=== PATIENT | female | born 1980 | race African-American/Black ===

== ENCOUNTER 2017-03-28 15:13 | Emergency (ER) | payer OTHER ==
[~2017-03-28] VITALS: Ht 165.1 cm; Wt 66.4 kg
[2017-03-28 15:33] VITALS: BP 122/71; PULSE 64; RESP 16; TEMP 98.5; O2SAT 100
[2017-03-28 15:47] LABS: BILIRUBIN, URINE NEG (NEG); BLOOD, URINE LARGE (NEG); GLUCOSE,URINE NEG (NEG); KETONE, URINE NEG (NEG); NITRITE,URINE NEG (NEG); PH, URINE 6.5 (5.0-8.5); URINE LEUKOCYTE ESTERASE LARGE (NEG)
[2017-03-28 15:59] LABS: TRANSITIONAL EPI CELLS, URINE F /hpf; URINE COLOR YELLOW (YELLW/STRAW); WHITE BLOOD CELL CLUMPS MOD
[2017-03-28] MEDS ORDERED: MACR100C2 PO (17:26)
--- NOTE | 2017-03-28 17:27 | PD ---
HPI Chief Complaint: Complaint Time Seen by Provider: 17:17 Travel History International Travel<30 days: No Contact w/Intl Traveler<30days: No Traveled to known affect area: No History of Present Illness HPI This is a 36-year-old female here with urgency, frequency, and blood-tinged urine times one day. Patient has history of UTIs. She reports this is similar to prior. No fever/chills, back pain, abdominal pain, nausea or vomiting. Symptom severity is mild. No aggravating or alleviating factors. PFSH Past Medical History Tetanus Vaccination: > 5 Years Influenza Vaccination: No ?: Not LMP: 2 weeks ago Past Surgical History Section: Yes Social History Alcohol Use: Yes (occ) Tobacco Use: No Allergies-Medications (Allergen,Severity, Reaction): Coded Allergies: Sulfa (Sulfonamide Antibiotics) (Verified Allergy, Severe, TONGUE AND LIPS SWELL, 03/28/17) Reported Meds & Prescriptions Reported Meds & Active Scripts Active Macrobid (Nitrofurantoin Monoh/Nitrofur Macro) 100 Mg Cap 100 Mg PO BID 7 Days Review of Systems Except as stated in HPI: all other systems reviewed are Neg General / Constitutional: No: Fever HENT: No: Headaches Gastrointestinal: No: Abdominal Pain Genitourinary: Positive: Urgency, Frequency, Hematuria Musculoskeletal: No: Pain Skin: No Rash Physical Exam Narrative GENERAL: Alert and well-appearing 37-year-old female SKIN: Warm and dry. HEAD: Normocephalic. EYES: No injection or drainage. NECK: Supple, trachea midline. GASTROINTESTINAL: Abdomen soft, non-tender, nondistended. BACK: No CVA tenderness. Data Data Last Documented VS Vital Signs Date Time Temp Pulse Resp B/P (MAP) Pulse Ox O2 Delivery O2 Flow Rate FiO2 03/28/17 15:33 98.5 64 16 122/71 (88) 100 Orders Orders Urinalysis - C+S If Indicated (03/28/17 15:35) Urine Culture (03/28/17 15:33) Ed Discharge Order (03/28/17 17:27) Labs Laboratory Tests Test 03/28/17 15:33 Urine Collection Type CLEAN CATCH Urine Color YELLOW Urine Turbidity SLIGHT Urine pH 6.5 Urine Specific [place] 1.006 Urine Protein TRACE mg/dL Urine Glucose (UA) NEG mg/dL Urine Ketones NEG mg/dL Urine Occult Blood LARGE Urine Nitrite NEG Urine Bilirubin NEG Urine Leukocyte Esterase LARGE Urine RBC 50-99 /hpf Urine WBC 50-99 /hpf Urine WBC Clumps MOD Urine Squamous Epithelial Cells 6-8 /hpf Urine Transitional Epithelial Cells F /hpf Microscopic Urinalysis Comment CULTURE INDICATED Urine Collection Time 15:33 [facility] Medical Decision Making Medical Screen Exam Complete: Yes Emergency Medical Condition: Yes Differential Diagnosis UTI, pyelonephritis, nephrolithiasis Narrative Course This is a 37-year-old female here with urinary symptoms 1 day. No fever or chills. She is nontoxic appearing. Vital signs are stable. No CVA tenderness. UA is positive for infection. Patient be treated for UTI Diagnosis Primary Impression: UTI (urinary tract infection) Qualified Codes: N30.01 - Acute cystitis with hematuria Referrals: Primary Care Physician Additional Instructions: Antibiotics as prescribed. Push fluids. Return if he developed new or worsening symptoms Scripts Nitrofurantoin Monohydrate Macrocrystals (Macrobid) 100 Mg Cap 100 MG PO BID for Infection for 7 Days, #14 CAP 0 Refills Prov: Christy Aguillon 03/28/17 Disposition: 01 DISCHARGE HOME Condition: Stable Christy Aguillon Mar 28, 2017 17:27
== END 2017-03-28 17:35 | disposition home or self-care (01) ==
LOC: PHED 15:13 → PHEFT 17:35
DX: N30.01 Acute cystitis with hematuria (principal); B96.20 Unspecified Escherichia coli [E. coli] as the cause of diseases classified elsewhere; B96.89 Other specified bacterial agents as the cause of diseases classified elsewhere; Z87.440 Personal history of urinary (tract) infections; Z88.2 Allergy status to sulfonamides
CPT/HCPCS: 81001; 87077; 87086; 87186; 99283

== ENCOUNTER 2017-05-11 00:25 | Emergency (ER) | payer OTHER ==
[~2017-05-11] VITALS: Ht 165.1 cm; Wt 65.7 kg
[~2017-05-11 00:25] MED LIST: MACR100C2 PO
[2017-05-11 00:29] VITALS: BP 132/79; PULSE 71; RESP 18; TEMP 97.2; O2SAT 100
[2017-05-11 03:37] VITALS: BP 132/79; PULSE 71; RESP 18; TEMP 97.2; O2SAT 100
--- NOTE | 2017-05-11 03:43 | PD ---
HPI Chief Complaint: Complaint Time Seen by Provider: 03:41 Travel History International Travel<30 days: No Contact w/Intl Traveler<30days: No Traveled to known affect area: No History of Present Illness HPI 37-year-old female presents to the emergency department by private transportation for UTI. Patient had symptoms 1 day. Patient notes hematuria pinching discomfort with urination. History of UTIs. No fever no chills no nausea no vomiting no flank pain. Patient's last menses was 05/02/17 and normal for her; patient denies . [facility] Past Medical History Narrative Medical UTI; nursing notes were ?: Not LMP: 05/03/2017 Past Surgical History Section: Yes Social History Alcohol Use: Yes (occ) Tobacco Use: No Allergies-Medications (Allergen,Severity, Reaction): Coded Allergies: Sulfa (Sulfonamide Antibiotics) (Verified Allergy, Severe, TONGUE AND LIPS SWELL, 03/28/17) Reported Meds & Prescriptions Reported Meds & Active Scripts Active Pyridium (Phenazopyridine HCl) 100 Mg Tab 100 Mg PO Q8H PRN Cipro (Ciprofloxacin HCl) 500 Mg Tab 500 Mg PO BID 7 Days Review of Systems Except as stated in HPI: all other systems reviewed are Neg Physical Exam Narrative GENERAL: Well-developed well-nourished female no acute distress no respiratory distress SKIN: Warm and dry. HEAD: Normocephalic. EYES: No scleral icterus. No injection or drainage. NECK: Supple, trachea midline. No JVD or lymphadenopathy. CARDIOVASCULAR: Regular rate and rhythm without murmurs, gallops, or rubs. RESPIRATORY: Breath sounds equal bilaterally. No accessory muscle use. GASTROINTESTINAL: Abdomen soft, non-tender, nondistended. MUSCULOSKELETAL: No cyanosis, or edema. BACK: Nontender without obvious deformity. No CVA tenderness. Data Data Last Documented VS Vital Signs Date Time Temp Pulse Resp B/P (MAP) Pulse Ox O2 Delivery O2 Flow Rate FiO2 05/11/17 04:32 70 16 117/86 (96) 100 05/11/17 03:37 97.2 Orders Orders Ed Urine Pregnancytest Poc (05/11/17 03:41) Urinalysis - C+S If Indicated (05/11/17 03:41) Urine Culture (05/11/17 03:45) Ciprofloxacin (Cipro) (05/11/17 04:30) Phenazopyridine (Pyridium) (05/11/17 04:30) Ed Discharge Order (05/11/17 04:17) Labs Laboratory Tests Test 05/11/17 03:45 Urine Color RED Urine Turbidity SL CLOUDY Urine pH 5.5 Urine Specific [place] 1.010 Urine Protein 100 mg/dL Urine Glucose (UA) NEG mg/dL Urine Ketones NEG mg/dL Urine Occult Blood LARGE Urine Nitrite NEG Urine Bilirubin NEG Urine Urobilinogen 0.2 MG/DL Urine Leukocyte Esterase SMALL Urine RBC INNUM /hpf Urine WBC 9-14 /hpf Urine WBC Clumps OCC Urine Squamous Epithelial Cells 0-5 /hpf Urine Bacteria MOD /hpf Microscopic Urinalysis Comment CULTURE INDICATED MDM Medical Decision Making Medical Screen Exam Complete: Yes Emergency Medical Condition: Yes Medical Record Reviewed: Yes Interpretation(s) UA: Many white blood cells bacteria culture indicated [id number] hCG: Negative Differential Diagnosis UTI, hemorrhagic cystitis, pyelonephritis, Narrative Course Urinalysis specimen collection sent for resulting in [id number] hCG ordered Patient informed of abnormal urinalysis given first dose of oral antibiotic in the emergency department in stable for outpatient management Diagnosis Primary Impression: UTI (urinary tract infection) Referrals: Primary Care Physician call for appointment Patient Instructions: General Instructions Additional Instructions: Increase fluid hydration Follow-up with your primary care provider Complete course of antibiotic as prescribed Take acetaminophen/Tylenol as tolerated for fever 100.4F or greater Take ibuprofen/Advil/Motrin 600 mg as often as every 6 hours as needed for fever 100.4F or greater for pain associated with inflammation Return to the emergency department for any concerns or change in condition Med/Other Pt SpecificInfo: Prescription(s) given Scripts Phenazopyridine (Pyridium) 100 Mg Tab 100 MG PO Q8H Y for DYSURIA, #6 TAB 0 Refills Prov: Clary Duval MD 05/11/17 Ciprofloxacin (Cipro) 500 Mg Tab 500 MG PO BID for Infection for 7 Days, #14 TAB 0 Refills Prov: Clary Duval MD 05/11/17 Disposition: 01 DISCHARGE HOME Condition: Stable Clary Duval MD May 11, 2017 03:43
[2017-05-11 04:08] LABS: BLOOD, URINE LARGE (NEG); GLUCOSE,URINE NEG (NEG); KETONE, URINE NEG (NEG); NITRITE,URINE NEG (NEG); PH, URINE 5.5 (5.0-8.5); URINE LEUKOCYTE ESTERASE SMALL (NEG)
[2017-05-11 04:11] LABS: URINE COLOR RED (YELLW/STRAW)
[2017-05-11 04:13] LABS: BILIRUBIN, URINE NEG (NEG)
[2017-05-11 04:14] LABS: BACTERIA, URINE MOD /hpf; RBC, URINE INNUM /hpf (0-3); SQUAMOUS EPITHELIAL CELL URINE 0-5 /hpf (0-5); WHITE BLOOD CELL CLUMPS OCC
[2017-05-11] MEDS ORDERED: PHEN0.4T PO (04:18)
[2017-05-11] MEDS ORDERED: CIPR-9 PO (04:18)
[2017-05-11] MEDS ORDERED: CIPROFLOXACIN 500 MG TAB PO ONE (04:30)
[2017-05-11] MEDS ORDERED: PHENAZOPYRIDINE HCL 100 MG TAB PO ONE (04:30)
[2017-05-11 04:32] VITALS: BP 117/86
== END 2017-05-11 04:37 | disposition home or self-care (01) ==
LOC: PHED 00:25
DX: N39.0 Urinary tract infection, site not specified (principal); R31.9 Hematuria, unspecified; B96.89 Other specified bacterial agents as the cause of diseases classified elsewhere
CPT/HCPCS: 81001; 84703; 87077; 87086; 87186; 99283